=== PATIENT | male | born 1955 | race Caucasian/White ===

== ENCOUNTER 2020-07-14 23:19 | Inpatient (IN) | payer BC ==
[~2020-07-14] VITALS: Ht 182.9 cm; Wt 83.6 kg
[~2020-07-14 23:19] MED LIST: ASPIRIN 81M81 MG/TA2 PO; GLUCOPHAGE500 MG/TAB PO; NIACIN1000 MG PO; PRINIVIL10 MG PO; TENORMIN 2525 MG/TAB PO; ZOCOR 20MG20 MG PO
[2020-07-15] VITALS (774 sets, daily range): BP systolic 105–136; BP diastolic 62–87; PULSE 75–98; TEMP 98.2–100.3; O2SAT 82–100
[2020-07-15 00:06] LABS: HEMATOCRIT 41.8 % (42.0-52.0); HEMOGLOBIN 13.6 g/dl (13.5-18.0); MEAN CELL VOLUME 91 fl (80.0-100.0); MEAN CORPUSCULAR HEMOGLOBIN 30 pg (27.0-31.0); MEAN CORPUSCULAR HGB CONC 33 g/dl (33.0-37.0); MEAN PLATELET VOLUME 10.3 fl (7.4-10.4); PLATELET COUNT 288 K/mm3 (130-400); RED BLOOD COUNT 4.58 M/mm3 (4.20-5.60); REDCELL DISTRIBUTION WIDTH-CV 14.1 % (11.5-14.5)
[2020-07-15 00:12] LABS: ALANINE AMINOTRANSFERASE 168 U/L (4-49); ALBUMIN 3.5 gm/dL (3.5-5.0); ALKALINE PHOSPHATASE 154 U/L (50-136); ANION GAP 8 mmol/L (7-16); AST,SGOT 145 U/L (15-37); BILIRUBIN,TOTAL 1.1 mg/dL (0.0-1.0); BLOOD UREA NITROGEN 24 mg/dL (9-20); CALCIUM 8.9 mg/dL (8.4-10.2); CARBON DIOXIDE 23 mmol/L (22-30); CHLORIDE 103 mmol/L (98-107); CREATININE, serum 1.02 (0.66-1.25); GLUCOSE 178 mg/dL (74-106); LIPASE 435 U/L (23-300); POTASSIUM 4.1 mmol/L (3.4-5.0); SODIUM 135 mmol/L (137-145); TOTAL PROTEIN 7.4 gm/dL (6.4-8.2)
[2020-07-15 00:18] LABS: INR 1.3 (0.8-3.0); PROTHROMBIN TIME 14.5 SECONDS (9.7-12.8)
[2020-07-15 00:22] LABS: C-REACTIVE PROTEIN 17.9 mg/dL (0.0-0.9); TROPONIN-I < 0.012 ng/mL (0.000-0.035)
[2020-07-15 00:43] LABS: ARTERIAL BLD GAS O2 SATURATION 94.8 % (92-100); ARTERIAL BLD GAS TCO2 CT 20.1; ARTERIAL BLOOD GAS BASE EXCESS -2.7 (-2-2); ARTERIAL BLOOD GAS HCO3 19.3 meq/L (22-26); ARTERIAL BLOOD GAS PCO2 27.3 mmHg (35-45); ARTERIAL BLOOD GAS PO2 72.4 mmHg (80-100); ARTERIAL BLOOD GAS pH 7.47 (7.35-7.45)
[2020-07-15 01:00] LABS: LYMPHOCYTE 10 % (20.0-51.0); NEUTROPHILS 79 % (42.0-75.2); PLATELET ESTIMATE NORMAL (NORMAL)
--- NOTE | 2020-07-15 03:07 | NUR ---
Arrived to the unit via stretcher. Alert and oriented and in no distress, however, does appear fatigued. Reportes some baseline shortness of breath. VS within normal limits. Call light left within reach. Will continue to monitor.
[2020-07-15 06:54] LABS: BASO % 0.2 % (0.0-2.0); EOS # 0.1 (0.0-0.7); EOS % 0.7 % (0-4.0); GRAN % 76.6 % (42.2-75.2); HEMATOCRIT 40.1 % (42.0-52.0); HEMOGLOBIN 12.8 g/dl (13.5-18.0); LYMPH # 1.5 (1.2-3.4); MEAN CELL VOLUME 93 fl (80.0-100.0); MEAN CORPUSCULAR HEMOGLOBIN 30 pg (27.0-31.0); MEAN CORPUSCULAR HGB CONC 32 g/dl (33.0-37.0); MEAN PLATELET VOLUME 10.6 fl (7.4-10.4); MONO # 0.8 (0.1-0.6); MONO % 7.4 % (1.7-9.3); PLATELET COUNT 286 K/mm3 (130-400); RED BLOOD COUNT 4.31 M/mm3 (4.20-5.60); REDCELL DISTRIBUTION WIDTH-CV 14.2 % (11.5-14.5)
[2020-07-15 07:13] LABS: ALBUMIN 3.1 gm/dL (3.5-5.0); BILIRUBIN,TOTAL 0.9 mg/dL (0.0-1.0); CALCIUM 8.2 mg/dL (8.4-10.2); CREATININE, serum 0.91 (0.66-1.25); POTASSIUM 4.5 mmol/L (3.4-5.0); TOTAL PROTEIN 6.7 gm/dL (6.4-8.2)
[2020-07-15 07:39] LABS: MAGNESIUM 2.4 mg/dL (1.6-2.3)
--- NOTE | 2020-07-15 09:12 | NUR ---
called to notifty her of patients temp of 100.3 f, also ddimer came back elevated at 412. Ordered the patient tylenol. no further orders.
--- NOTE | 2020-07-15 09:15 | NUR ---
called for consult. Gave him overview of patient and he would like to clarify with that he is needed on this case since patient is otherwise stable.
--- NOTE | 2020-07-15 09:22 | NUR ---
called for cardiology consult for new onset afib. Patient is currently rate controlled and stable at this time. will be in to see patient at some point today.
--- NOTE | 2020-07-15 10:19 | NUR ---
at bedside. Will start remdesivir, reswab patient and d/c IVF.
--- NOTE | 2020-07-15 12:00 | NUR ---
at bedside. Will keep eye on heart rate and rhythm for new onset afib which is rate controlled. Said to just keep patient coagulated with lovenox in the meantime.
--- NOTE | 2020-07-15 13:45 | NUR ---
SW contacted patient to discuss discharge planning. Patient currently resides n [facility] with his Rose [phone] as care support and EMR. PAtient does not currently have a DPOA, and declined one at this time. Patient reported that he usues a CPAP at night, and that Dr. Batres is his PCP. Patient reported that he does not have an upcoming appointment and that he gets his medications from [facility] in [place] with no concerns. No other concerns noted at this time. Patient was educated about community resources. SW may want to follow up as patient had indicated the possiblity of getting O2 added to his CPAP machine.
--- NOTE | 2020-07-15 20:18 | NUR ---
Alert and oriented resting in bed. Assessment complete; All questions and concerns addressed at this time. Call light within reach.
[2020-07-16] VITALS (679 sets, daily range): BP systolic 101–138; BP diastolic 56–92; PULSE 74–98; TEMP 98; O2SAT 74–100
[2020-07-16 06:17] LABS: BASO % 0.2 % (0.0-2.0); EOS % 0.1 % (0-4.0); GRAN # 10.2 (1.4-6.5); GRAN % 82.9 % (42.2-75.2); HEMATOCRIT 41.1 % (42.0-52.0); HEMOGLOBIN 13.3 g/dl (13.5-18.0); LYMPH # 1.1 (1.2-3.4); MEAN CELL VOLUME 91 fl (80.0-100.0); MEAN CORPUSCULAR HEMOGLOBIN 30 pg (27.0-31.0); MEAN CORPUSCULAR HGB CONC 32 g/dl (33.0-37.0); MEAN PLATELET VOLUME 10.4 fl (7.4-10.4); MONO # 0.8 (0.1-0.6); MONO % 6.8 % (1.7-9.3); PLATELET COUNT 344 K/mm3 (130-400); REDCELL DISTRIBUTION WIDTH-CV 13.8 % (11.5-14.5)
[2020-07-16 06:30] LABS: ALBUMIN 3.2 gm/dL (3.5-5.0); BILIRUBIN,TOTAL 0.6 mg/dL (0.0-1.0); CALCIUM 8.9 mg/dL (8.4-10.2); CREATININE, serum 0.81 (0.66-1.25); MAGNESIUM 2.5 mg/dL (1.6-2.3); PHOSPHOROUS 3.3 mg/dL (2.5-4.5); POTASSIUM 4.7 mmol/L (3.4-5.0)
--- NOTE | 2020-07-16 14:31 | NUR ---
Agency Legal Counsel contacted the patient's , Luisa to introduce oneself. SW provided this SWs contact information. Luisa stated she would like to get an update on the patient. SW collaborated the above information with the patient's nurse.
--- NOTE | 2020-07-16 18:09 | NUR ---
Report called to Medical. Patient to transfer to room 311 after shift report
--- NOTE | 2020-07-16 18:35 | NUR ---
Report received from JUAN Duggan. Pt will arrive after shift change. Will give bedside shfit report to nighthshift nurse who will resume care.
--- NOTE | 2020-07-16 20:50 | NUR ---
Received patient from ICU via wheelchair. Patient is alert and oriented. With O2 at 2lpm via NC. With INT on left and right forearm. He denies pain. Urinal provided on bedside. Call light within reach.
[2020-07-17 00:15] VITALS: BP 150/88; PULSE 92; TEMP 97.9
[2020-07-17 04:29] VITALS: BP 125/90; PULSE 71; TEMP 97.9
--- NOTE | 2020-07-17 06:39 | NUR ---
Patient had uneventful night. He denies pain. He is afebrile. He's been using his urinal at the bedside. No difficulty of breathing. Still on O2 at 2lpm via NC.
[2020-07-17 07:34] LABS: BASO % 0.1 % (0.0-2.0); GRAN % 85.2 % (42.2-75.2); HEMATOCRIT 41.1 % (42.0-52.0); HEMOGLOBIN 13.4 g/dl (13.5-18.0); LYMPH # 1.1 (1.2-3.4); LYMPH % 8.2 % (20.0-51.0); MEAN CELL VOLUME 93 fl (80.0-100.0); MEAN CORPUSCULAR HEMOGLOBIN 30 pg (27.0-31.0); MEAN CORPUSCULAR HGB CONC 33 g/dl (33.0-37.0); MEAN PLATELET VOLUME 11.3 fl (7.4-10.4); MONO # 0.7 (0.1-0.6); MONO % 5.4 % (1.7-9.3); PLATELET COUNT 382 K/mm3 (130-400); RED BLOOD COUNT 4.44 M/mm3 (4.20-5.60); REDCELL DISTRIBUTION WIDTH-CV 13.7 % (11.5-14.5)
[2020-07-17 07:47] LABS: ALBUMIN 3.1 gm/dL (3.5-5.0); BILIRUBIN,TOTAL 0.5 mg/dL (0.0-1.0); CALCIUM 9.1 mg/dL (8.4-10.2); CREATININE, serum 0.89 (0.66-1.25); MAGNESIUM 2.3 mg/dL (1.6-2.3); TOTAL PROTEIN 6.6 gm/dL (6.4-8.2)
[2020-07-17 07:49] VITALS: BP 122/90; PULSE 84; TEMP 97.7
--- NOTE | 2020-07-17 08:49 | NUR ---
Assessment complete. Patient resting in bed at this time, awake. No complaints of pain or discomfort. Reports a cough but states that he feels okay. IV sites are CD&I at this time. Medications were administered to patient. Patient is aware of his POC at this time and states that he would like to get up and move around through the day per Dr. Crystal recommendation. Denies any other needs at this time. Call light is in reach.
[2020-07-17 11:59] VITALS: BP 136/80; PULSE 78; TEMP 98.1
[2020-07-17 15:53] VITALS: BP 131/82; PULSE 90; TEMP 98.1
--- NOTE | 2020-07-17 16:29 | NUR ---
Patient has had an uneventful day. No complaints of pain or discomfort. Cough is his only complaint but he states it is not that bad. Ambulated via standby to the restroom and did very well. Oxygen extention tubing was provided so he can ambulate independently but he expresses that he only ambulates with staff in the room. Continues to use the urinal to void. No other needs were expressed at this time. Call light is in reach.
[2020-07-17 19:14] VITALS: BP 142/80; PULSE 70; TEMP 98.3
--- NOTE | 2020-07-17 19:30 | NUR ---
Contacted by telemetry at this time. Patient's HR is in the 150's; RT has just given him his inhaler and patient has been coughing; monitored HR for 5-10 minutes and it remained elevated. Dr. Ortiz is notified and orders 5mg metoprolol IV to be adminsitered now. After 10 minutes, HR is down to 90's. Will continue to monitor.
--- NOTE | 2020-07-17 20:00 | NUR ---
At time of assessment, patient is alert and oriented with no complaints of pain. He has a dry, intermittent cough. Lungs are clear and he is tolerating RA well. No edema is present. HR and new onset afib has been rate controlled throughout dayshift but has increased into the 130-150's. It is being managed with IV and PO metoprolol (refer to previous nursing notes). Will continue to monitor.
--- NOTE | 2020-07-17 22:25 | NUR ---
HR is back up to [address] Ortiz notified and orders for atenolol to be d/c'd and starts patient on 25mg metorprolol PO BID. 25 mg PO administered at this time. Will continue to monitor.
[2020-07-18] VITALS: BP 132/72; PULSE 63; TEMP 97.8
[2020-07-18 04:02] VITALS: BP 122/74; PULSE 71; TEMP 97.9
[2020-07-18 04:56] LABS: HEMATOCRIT 41.7 % (42.0-52.0); HEMOGLOBIN 13.6 g/dl (13.5-18.0); MEAN CELL VOLUME 93 fl (80.0-100.0); MEAN CORPUSCULAR HEMOGLOBIN 30 pg (27.0-31.0); MEAN CORPUSCULAR HGB CONC 33 g/dl (33.0-37.0); MEAN PLATELET VOLUME 10.5 fl (7.4-10.4); PLATELET COUNT 404 K/mm3 (130-400); RED BLOOD COUNT 4.49 M/mm3 (4.20-5.60); REDCELL DISTRIBUTION WIDTH-CV 13.6 % (11.5-14.5)
[2020-07-18 05:05] LABS: ALBUMIN 3.1 gm/dL (3.5-5.0); BILIRUBIN,TOTAL 0.4 mg/dL (0.0-1.0); CALCIUM 9.2 mg/dL (8.4-10.2); CREATININE, serum 0.89 (0.66-1.25); MAGNESIUM 2.2 mg/dL (1.6-2.3); PHOSPHOROUS 4.6 mg/dL (2.5-4.5); POTASSIUM 4.7 mmol/L (3.4-5.0); TOTAL PROTEIN 6.7 gm/dL (6.4-8.2)
--- NOTE | 2020-07-18 05:37 | NUR ---
Patient has remained afebrile throughout the night. He has had no complaints of pain or SOA. He has worn 2L 02 throughout the night.
[2020-07-18 06:09] LABS: BAND 5 % (0-10); LYMPHOCYTE 7 % (20.0-51.0); METAMYELOCYTE 2 % (0-0); NEUTROPHILS 84 % (42.0-75.2); PLATELET ESTIMATE INCREASED (NORMAL)
[2020-07-18 08:17] VITALS: BP 138/86; PULSE 73; TEMP 98
--- NOTE | 2020-07-18 08:54 | NUR ---
Pt assessment complete. Pt is returning to bed upon entry, he is A/O x4. His breathing is even and unlabored on 2L O2 via NC. Pt reports increased SOB and dry cough with ambulation. Has no pain this morning. No N/V. Reports having a good appetite. No needs at this time. Call light within reach.
[2020-07-18 11:53] VITALS: BP 128/88; PULSE 74; TEMP 98
[2020-07-18 16:17] VITALS: BP 122/82; PULSE 69; TEMP 98.1
--- NOTE | 2020-07-18 19:11 | NUR ---
Pt had uneventful day. Update given to patient's . VSS, no increase needs in O2. Pt denies pain. Was not out of bed much today. Remains in Afib rate controlled. POC discussed with patient. Report given to JUAN Iglesias.
--- NOTE | 2020-07-18 19:35 | NUR ---
Telemetry called and stated that patient's HR got up to 180, but staying around 150s. Patient had been up to the bathroom during that time. After getting back in bed, patient's HR 120s. Given scheduled Lopressor at this time. Assessment complete. Alert and oriented x 4, and able to make needs known. Denies having pain and discomfort at this time. Peripheral INTs to right hand and left forearm. Denies having SOB and dyspnea. Continues on oxygen at 1 L/min via NC. LS CTA. Respirations even and unlabored. HRI-afib on telemetry. Denies chest pain and discomfort. Capillary refill less than 3 seconds. Non-tenting skin turgor. BSAx4. Abdomen soft and non-tender. No edema. Voices no questions, needs, or concerns at this time. Resting in bed with call light within reach.
[2020-07-18 19:39] VITALS: BP 124/82; PULSE 126; TEMP 98.1
--- NOTE | 2020-07-18 21:45 | NUR ---
Around 2129, telemetry called and stated that patient was frequently jumping around in A-fib from 110s to 150s. BP 138/72. Continues to deny having chest pain and discomfort. Called to Han[facility]. New order to give 5 mg IV Lopressor. Given at this time.
--- NOTE | 2020-07-18 22:10 | NUR ---
Telemetry with patient 80s-110s. Current BP 122/80. Called and updated Hanane as requested. New order to give 25 mg PO Lopressor. Given at this time.
[2020-07-19 00:02] VITALS: BP 138/80; PULSE 62; TEMP 98.7
[2020-07-19 04:06] VITALS: BP 130/74; PULSE 75; TEMP 97.9
--- NOTE | 2020-07-19 05:00 | NUR ---
When starting IV antibiotic, patient complaining of burning/pain to left forearm. Right hand flushed and site was leaking. Both INTs discontinued. New INT started to left forearm at this time.
--- NOTE | 2020-07-19 06:08 | NUR ---
Patient continues to be in A-fib, rate controlled 70-80s since receiving one time dose of 5mg IV lopressor followed by 25 mg PO Lopressor. Denies having pain and discomfort. Continues on IV antibiotics per orders. Afebrile this shift. Denies having nausea and diarrhea. Continues to wear oxygen at 1 L/min via NC. Continues to have occasional dry cough. SOB with exertion continues. Resting in bed with call light within reach.
[2020-07-19 07:32] LABS: HEMATOCRIT 44.7 % (42.0-52.0); HEMOGLOBIN 14.6 g/dl (13.5-18.0); MEAN CELL VOLUME 93 fl (80.0-100.0); MEAN CORPUSCULAR HEMOGLOBIN 30 pg (27.0-31.0); MEAN CORPUSCULAR HGB CONC 33 g/dl (33.0-37.0); PLATELET COUNT 447 K/mm3 (130-400); RED BLOOD COUNT 4.82 M/mm3 (4.20-5.60); REDCELL DISTRIBUTION WIDTH-CV 13.5 % (11.5-14.5)
[2020-07-19 07:54] LABS: ALBUMIN 3.3 gm/dL (3.5-5.0); BILIRUBIN,TOTAL 0.5 mg/dL (0.0-1.0); CALCIUM 9.1 mg/dL (8.4-10.2); CREATININE, serum 0.94 (0.66-1.25); MAGNESIUM 2.4 mg/dL (1.6-2.3); PHOSPHOROUS 4.4 mg/dL (2.5-4.5); POTASSIUM 4.6 mmol/L (3.4-5.0); TOTAL PROTEIN 6.9 gm/dL (6.4-8.2)
[2020-07-19 08:34] VITALS: BP 124/72; PULSE 64; TEMP 98.2
--- NOTE | 2020-07-19 08:44 | NUR ---
Pt awake and alert upon entry, no C/O pain at this time, talkative. Shift assessments complete, left Pt call light in reach, bed in lowest position.
[2020-07-19 08:52] LABS: BAND 6 % (0-10); NEUTROPHILS 75 % (42.0-75.2)
[2020-07-19 08:53] LABS: LYMPHOCYTE 12 % (20.0-51.0); PLATELET ESTIMATE INCREASED (NORMAL)
[2020-07-19] MEDS ORDERED: ELIQUIS 5MG PO (09:07)
[2020-07-19] MEDS ORDERED: LOPRESSOR 225 MG/TAB PO ×2 (09:08)
[2020-07-19] MEDS ORDERED: GLUCOPHAGE500 MG/TAB PO (09:09)
[2020-07-19] MEDS ORDERED: DECADRON6 MG PO (09:10)
--- NOTE | 2020-07-19 09:17 | NUR ---
The patient's , Rose, contacted KATRIN yesterday afternoon and expressed her concerns about not getting any medical updates. SW provided support and notified the PA. SW informed the patient's about how he is requiring oxygen and how SW helps get that set up. The patient's reports that the patient already has continuous oxygen at home from [employer]. KATRIN contacted and confirmed this with Dave from [employer]. The patient plans to return back home with his upon discharge. No additional needs at this time.
[2020-07-19] MEDS ORDERED: TOPROL XL 25MG25 MG PO (10:06)
[2020-07-19] MEDS ORDERED: CARDIZEM CD 12120 MG PO (10:06)
[2020-07-19] MEDS ORDERED: PROAIR HFA0.09 MG/AC IH (12:31)
--- NOTE | 2020-07-19 14:45 | NUR ---
Pt discharged to home, discussed discharge packet with Pt, answered questions, escorted Pt to entrance, assisted into vehicle, left with spouse via private auto.
== END 2020-07-19 14:47 | disposition home or self-care (01) | DRG 177 ==
LOC: COL.ER 23:19 → MEDICAL 07-15 00:45 → ICU 07-15 00:45 → MEDICAL 07-16 19:39
PROVIDERS: Emergency Medicine; Internal Medicine Pulmonary Disease; Physician Assistant; ADMIT Family Medicine
DX: U07.1 COVID-19 (principal); J96.01 Acute respiratory failure with hypoxia; J15.9 Unspecified bacterial pneumonia; I10 Essential (primary) hypertension; E78.5 Hyperlipidemia, unspecified; E11.9 Type 2 diabetes mellitus without complications; I95.9 Hypotension, unspecified; I48.91 Unspecified atrial fibrillation; E05.80 Other thyrotoxicosis without thyrotoxic crisis or storm; Z79.84 Long term (current) use of oral hypoglycemic drugs; Z88.2 Allergy status to sulfonamides
CPT/HCPCS: 99232-AI; 99233-AI; 99239; J0696; J1650; J1815; J2405; J7030; J7050; J8540

== ENCOUNTER → 2021-09-17 | Outpatient (CLI) | payer OTHER, MEDICARE ==
[~2021-09-17] MED LIST changes: +CARDIZEM CD 12120 MG PO; +CARTIA XT120 MG PO; +DECADRON6 MG PO; +ELIQUIS 5MG PO; +LOPRESSOR 225 MG/TAB PO; +PROAIR HFA0.09 MG/AC IH; +TOPROL XL 25MG25 MG PO; +VITAMINC1000TA
== END ==
LOC: COL.VAS 13:47
DX: I08.3 Combined rheumatic disorders of mitral, aortic and tricuspid valves (principal)

== ENCOUNTER 2021-10-01 11:13 | Inpatient (IN) | payer OTHER, MEDICARE ==
[~2021-10-01] VITALS: Ht 182.9 cm; Wt 90.5 kg
[2021-10-29] VITALS (10 sets, daily range): BP systolic 118–140; BP diastolic 65–77; PULSE 76–94; TEMP 98.2–98.3
--- NOTE | 2021-10-29 05:30 | NUR ---
66 year old patient admitted to bay #8 via ambulation, using a steady gait and not use of assistive devices. Medications and HX reviewed. First and last name + verified with patient and confirmed with his wristband. Consent reviewed and signed. Patient verbalized understanding of procedure. Lung sound are CTA. Heart is in sinus rythm. Bowel sounds are present in x4 quads. Blood sugar obtained from IV stick: 158 and documented. IV started in L hand on second attempt with #20. NS is infusing without difficulty. Call justin is at bedside. Side rails x2. Will continue to check in on patient. is in the bay with her .
[2021-10-29 06:29] LABS: BASO % 0.5 % (0.0-2.0); EOS # 0.4 K/mm3 (0.0-0.7); EOS % 4.6 % (0-4.0); GRAN % 65.4 % (42.2-75.2); HEMATOCRIT 40.4 % (42.0-52.0); HEMOGLOBIN 13.6 g/dl (13.5-18.0); LYMPH # 1.7 K/mm3 (1.2-3.4); LYMPH % 21.7 % (20.0-51.0); MEAN CELL VOLUME 91 fl (80.0-100.0); MEAN CORPUSCULAR HEMOGLOBIN 31 pg (27.0-31.0); MEAN CORPUSCULAR HGB CONC 34 g/dl (33.0-37.0); MEAN PLATELET VOLUME 9.7 fl (7.4-10.4); MONO # 0.6 K/mm3 (0.1-0.6); MONO % 7.5 % (1.7-9.3); PLATELET COUNT 194 K/mm3 (130-400); RED BLOOD COUNT 4.44 M/mm3 (4.20-5.60); REDCELL DISTRIBUTION WIDTH-CV 13.4 % (11.5-14.5)
[2021-10-29 06:48] LABS: ALBUMIN 4.1 gm/dL (3.4-4.8); BILIRUBIN,TOTAL 0.6 mg/dL (0.2-1.2); CREATININE, serum 1.01 mg/dL (0.72-1.25); POTASSIUM 3.7 mmol/L (3.5-4.5); TOTAL PROTEIN 7.1 gm/dL (6.2-8.1)
--- NOTE | 2021-10-29 07:00 | NUR ---
visited with patient before surgery.
--- NOTE | 2021-10-29 12:10 | NUR ---
PT ARRIVED TO FLOOR AT 1210. PT IS ALERT AND ORIENTED BUT DROWSY WITH NO COMPLAINS OF N/V OR PAIN. VITAL SIGNS ARE STABLE. PT IS ON 2L O2 VIA NC. ASSESSMENT COMPLETE. 5 ABD LAP SITES. EDGES ARE WELL APPROXIMATED AND CLOSED WITH SKIN GLUE. JENIFER DRAIN TO L ABDOMEN WITH 2X2 GAUZE AROUND TUBING. BLOOD-TINGED DRAINAGE NOTED ONLY TO JENIFER DRAIN TUBING. BED IN LOW LOCKED POSITION AND CALL LIGHT WITHIN REACH.
--- NOTE | 2021-10-29 19:30 | NUR ---
Received report from joshua. Pt resting in bed with minimal pain complaints at this time. Discussed him going for a walk this evening. PT denies any needs, call light within reach.
--- NOTE | 2021-10-29 22:24 | NUR ---
Pt did well ambulating. He went approximately 50 feet. Some pain complaints, but reported it was tolerable. Discussed catheter care as well as changing over to leg bag when at home. Talked about the importance of activity. Pt is burping, but is not passing as gas at this time. He is ADA diet
[2021-10-30 00:29] VITALS: BP 111/60; PULSE 75; TEMP 98.9
--- NOTE | 2021-10-30 03:22 | NUR ---
PT resting with eyes closed, even non labored breathing. Pt was very focused on his catheter and making sure it was draining. Output is very clear.
[2021-10-30 04:25] VITALS: BP 111/62; PULSE 80; TEMP 98.1
--- NOTE | 2021-10-30 04:44 | NUR ---
Pt doing well, stated that he was able to get some good sleep. Informed that I checked on his catheter while he was sleeping to ensure it was draining properly. Pt reports pain 6/, scheduled pain medication given. Pt denies any other needs, call light within reach
[2021-10-30 05:59] LABS: CALCIUM 9.3 mg/dL (8.4-10.2); CREATININE, serum 1.04 mg/dL (0.72-1.25); POTASSIUM 3.9 mmol/L (3.5-4.5)
[2021-10-30 06:25] LABS: HEMOGLOBIN 11.1 g/dl (13.5-18.0)
[2021-10-30 07:29] VITALS: BP 105/58; PULSE 100; TEMP 98.3
--- NOTE | 2021-10-30 08:01 | NUR ---
PT was tachy during morning vital signs. Heart rate was regular during this time. Pt stated that he did feel a little different, but was not having any pain. Helped pt get more comfortable in bed. PT reported feeling better and heart rate regular. Pt tolerated general breakfast with no complaints. He is passing gas.
--- NOTE | 2021-10-30 10:00 | NUR ---
Pt has been up walking in the halls this morning. Very little out of his JENIFER drain. Pts is present in the room. Informed pt that the drain will be removed soon. Pt reports that pain is tolerable, scheduled Toradol given.
--- NOTE | 2021-10-30 10:37 | NUR ---
Initial visit; Patient thanked Candle Molder for looking in on him and offering God's blessings.
--- NOTE | 2021-10-30 10:44 | NUR ---
JENIFER drain removed with 5 mL serousanguineous drainage. Suture removed with minimal bleeding. Pressure applied for two minutes. 2x2 gauze and tape applied. Incision free of redness and swelling. Patient tollerated procedure well.
[2021-10-30 10:58] VITALS: BP 118/60; PULSE 69; TEMP 97.5
--- NOTE | 2021-10-30 11:40 | NUR ---
Report received from JUAN Rivas, at 1040. Denies complaints upon assessment. at bedside. INT to left hand. Alert, oriented x4, makes needs known. Call light within reach.
--- NOTE | 2021-10-30 14:52 | NUR ---
Recreation Superintendent met with patient to discuss discharge planning. Patient lives in [place] with his , Luisa (ph#[phone]) [address] sees Dr. Batres for primary care. Patient obtains medications from [facility] in with no difficulties. Patient uses a CPAP and no other DME. Patient is independent with ADLS and plans to return home upon discharge. Patient has Advance Directives which designate his Rose Jamison" as DPOA-HC on his chart. Discharge Plan: Home with spouse
--- NOTE | 2021-10-30 16:25 | NUR ---
This RN took over care of the patient at approx. 1300. Patient given discharge instructions and provided with a leg bag and regular urinary catheter bag. Patient escorted out by PCT
== END 2021-10-30 16:20 | disposition home or self-care (01) | DRG 708 ==
LOC: INPTSU 10-29 05:23 → SURG 10-29 05:23
PROVIDERS: ADMIT Urology
PROC: 0VT04ZZ Resection of Prostate, Percutaneous Endoscopic Approach (ICD-10-PCS; principal; 2021-10-29 07:30)
DX: C61 Malignant neoplasm of prostate (principal); I48.91 Unspecified atrial fibrillation; E11.9 Type 2 diabetes mellitus without complications; I10 Essential (primary) hypertension; G47.33 Obstructive sleep apnea (adult) (pediatric); E78.00 Pure hypercholesterolemia, unspecified; E66.9 Obesity, unspecified; E78.5 Hyperlipidemia, unspecified; Z79.01 Long term (current) use of anticoagulants; Z79.84 Long term (current) use of oral hypoglycemic drugs; Z99.81 Dependence on supplemental oxygen; Z86.16 Personal history of COVID-19; Z88.2 Allergy status to sulfonamides
CPT/HCPCS: A4314; J0690; J1100; J1170; J1815; J1885; J2405; J2704; J3010; J7030; J7120

== ENCOUNTER 2021-10-04 08:06 | Outpatient (RCR) | payer OTHER, MEDICARE ==
--- NOTE | 2021-09-23 09:40 | NUR ---
LMOM WITH INSTRUCTIONS AND CALL BACK NUMBER
[2021-09-27 11:20] VITALS: BP 158/94; PULSE 92; TEMP 98.2
--- NOTE | 2021-09-27 12:00 | NUR ---
nuc med instructed pt will have resting pictures today, and will need to come back next Thursday for stress pictures due to dosage recieved. Stated Dr was called and and patient have explanation and scheduled to come next Thursday am, iv dc'd intact
[~2021-10-04] VITALS: Ht 182.9 cm; Wt 84.0 kg
[2021-10-04 08:25] VITALS: BP 145/86; PULSE 84; TEMP 97.9
[2021-10-04 08:55] VITALS: BP 131/80; PULSE 80
[2021-10-04 08:56] VITALS: BP 149/86; PULSE 123
[2021-10-04 08:57] VITALS: BP 146/81; PULSE 121
[2021-10-04 08:58] VITALS: BP 135/81; PULSE 109
[2021-10-04 08:59] VITALS: BP 128/77; PULSE 111
== END 2021-11-29 ==
LOC: COL.CARD
DX: R06.00 Dyspnea, unspecified (principal)
CPT/HCPCS: A9500; J2785